=== PATIENT | male | born 1980 | race Caucasian/White ===

== ENCOUNTER 2018-10-24 02:15 | Emergency (ER) | payer OTHER ==
[2018-10-24 02:51] VITALS: BP 152/84
[2018-10-24] MEDS: Ketorolac 30 MG/ML SDV IM ONE (03:10)
--- NOTE | 2018-10-24 03:14 | EDM.PDOC ---
ED HPI GENERAL MEDICAL PROBLEM - General Chief Complaint: Respiratory Problem Stated Complaint: Head congestion, Chest wall pain, asthma Time Seen by Provider: 10/24/18 02:25 Source of Information: Reports: Patient History Limitations: Reports: No Limitations - History of Present Illness INITIAL COMMENTS - FREE TEXT/NARRATIVE: Pt. presents to ER with complaints of cough, chest congestion, and respirophasic chest pain. He states that he has been experiencing these symptoms for several days, but they intensified yesterday. Pt. has an underlying history of asthma and has been using his home meds. He states that he is also experiencing sinus congestion as well as facial pain. Denies any sore throat. He states that the pain in his chest is located on the L side. Pt. has not been checking his temperature. He denies any rashes. No recent travel. Onset Date: 10/23/18 Location: Reports: Head, Face, Chest Quality: Reports: Ache, Burning Severity: Severe Treatments RUBBER INSULATOR: Reports: Other (see below) Other Treatments RUBBER INSULATOR: Flexeril, Inhalers upper chest Pain Score (Numeric/FACES): 5 - Related Data Allergies Allergy/AdvReac Type Severity Reaction Status Date / Time No Known Allergies Allergy Verified 10/24/18 02:37 Home Meds: Home Meds Fluticasone Propionate [Flovent HFA 110 MCG] 1 inh INH PRN 03/03/14 [History] Fluticasone Propionate [Fluticasone Propionate [place]] 1 spray NASBOTH BID #1 bottle 01/05/15 [Rx] Albuterol Sulfate [Albuterol Sulfate Hfa] 2 puff INH Q4H PRN 10/24/18 [History] Past Medical History Respiratory History: Reports: Asthma ED ROS GENERAL - Review of Systems Review Of Systems: See Below Constitutional: Reports: No Symptoms HEENT: Reports: Rhinitis, Sinus Problem Respiratory: Reports: Shortness of Breath, Wheezing Cardiovascular: Reports: No Symptoms Endocrine: Reports: No Symptoms GI/Abdominal: Reports: No Symptoms : Reports: No Symptoms Musculoskeletal: Reports: No Symptoms Skin: Reports: No Symptoms Neurological: Reports: No Symptoms Psychiatric: Reports: No Symptoms Hematologic/Lymphatic: Reports: No Symptoms Immunologic: Reports: No Symptoms ED EXAM, GENERAL - Physical Exam Exam: See Below Exam Limited By: No Limitations General Appearance: Alert, WD/WN, No Apparent Distress Head: Atraumatic, Normocephalic Neck: Normal Inspection, Supple, Non-Tender, Full Range of Motion Respiratory/Chest: Decreased Breath Sounds Cardiovascular: Normal Peripheral Pulses, Regular Rate, Rhythm, No Edema, No Gallop, No JVD, No Murmur, No Rub Peripheral Pulses: 4+: Radial (L), Radial (R) GI/Abdominal: Normal Bowel Sounds, Soft, Non-Tender, No Organomegaly, No Distention, No Abnormal Bruit, No Mass (Male) Exam: Deferred Rectal (Males) Exam: Deferred Back Exam: Normal Inspection, Full Range of Motion Extremities: Normal Inspection, Normal Range of Motion, Non-Tender, No Pedal Edema, Normal Capillary Refill Neurological: Alert, Oriented, CN II-XII Intact, Normal Cognition, Normal Gait, Normal Reflexes, No Motor/Sensory Deficits Psychiatric: Normal Affect, Normal Mood Skin Exam: Warm, Dry, Intact, Normal Color, No Rash Lymphatic: No Adenopathy Course - Vital Signs Last Recorded V/S: Last Vital Signs Temp 37.0 C 10/24/18 02:15 Pulse 116 H 10/24/18 02:15 Resp 18 10/24/18 02:15 BP 152/84 H 10/24/18 02:15 Pulse Ox 98 10/24/18 02:15 - Orders/Labs/Meds Orders: Active Orders 24 hr Category Date Time Status Chest 2V [CR] Stat Exams 10/24/18 02:32 Taken Meds: Medications Discontinued Medications Generic Name Dose Route Start Last Admin Trade Name Freq PRN Reason Stop Dose Admin Doxycycline Monohydrate 1 packet 10/24/18 03:03 Take Home: Doxycycline 100 Mg, 4 Tab Pack PO 10/24/18 03:04 ONETIME ONE Ketorolac Tromethamine 30 mg 10/24/18 03:02 Toradol IM 10/24/18 03:03 ONETIME ONE - Radiology Interpretation Free Text/Narrative:: chest x-ray reveals some increased perihilar opacification bilaterally, moreso on the L than the R. Departure - Departure Time of Disposition: 03:18 Disposition: Home, Self-Care 01 Clinical Impression: Asthma exacerbation, CAP (community acquired pneumonia), Pleurisy - Discharge Information Instructions: Pleurisy, [id number], Community-Acquired Pneumonia, Adult, Easy -to-Read Forms: ED Department Discharge Additional Instructions: Ibuprofen 600mg every 6 hours. Wait to take this until 9 tomorrow morning since you are getting toradol now. Doxycycyline 100mg twice daily for 10 days Follow-up in clinic in 10-14 days. Drink plenty of fluids. - My Orders Last 24 Hours: My Active Orders 10/24/18 02:32 Chest 2V [CR] Stat - Assessment/Plan Last 24 Hours: My Active Orders 10/24/18 02:32 Chest 2V [CR] Stat Plan: Ibuprofen 600mg every 6 hours. Wait to take this until 9 tomorrow morning since you are getting toradol now. Doxycycyline 100mg twice daily for 10 days Follow-up in clinic in 10-14 days. Drink plenty of fluids.
[2018-10-24] MEDS: Take Home: Doxycycline 100 MG Tab, 4 Tab Pack PO ONE (03:15)
--- NOTE | 2018-10-24 09:44 | CR ---
[id number] RAD/RAD Chest PA And Lateral EXAM: RAD Chest PA And Lateral INDICATION: DYSPNEA COMPARISON: 2014. DISCUSSION: Cardiomediastinal silhouette is normal in size and contour. No infiltrate, effusion, pneumothorax, or edema. IMPRESSION: Negative examination of the chest. Memo Arora MD 10/24/18 0943 Thank you for allowing us to participate in the care of your patient.
== END 2018-10-24 03:20 | disposition home or self-care (01) ==
LOC: VM.ED 02:15
DX: J18.9 Pneumonia, unspecified organism (principal); J45.901 Unspecified asthma with (acute) exacerbation; R09.1 Pleurisy
CPT/HCPCS: 71046; 96372; 99284-25; A9270-GY; J1885

== ENCOUNTER 2021-11-09 14:51 | Emergency (ER) | payer OTHER, BC ==
[2021-11-09 15:17] VITALS: BP 114/67; PULSE 78
== END 2021-11-09 15:32 | disposition home or self-care (01) ==
LOC: VM.ED 14:51
DX: T67.5XXA Heat exhaustion, unspecified, initial encounter (principal); J45.909 Unspecified asthma, uncomplicated; Z79.899 Other long term (current) drug therapy
CPT/HCPCS: 99283; 99284